=== PATIENT | male | born 1945 | race Two or more races ===

== ENCOUNTER 2019-04-04 17:21 | Emergency (ER) | payer MEDICARE, MEDICAID ==
[~2019-04-04] VITALS: Ht 182.9 cm; Wt 122.5 kg
--- NOTE | 2019-04-04 17:33 | NUR ---
CAME IN FOR L 5TH FINGER CELLULITIS. TO ER BED 3, HOOKED TO MONITOR, AWAITING MD LUCIANO
--- NOTE | 2019-04-04 18:00 | NUR ---
DR IQBAL AT BEDSIDE FOR RIGHT 5TH FINGER NEEDLE ASPIRATION
[2019-04-04] MEDS ORDERED: LIDOCAINE HCL/MPF 1% 30 ML VIAL IJ ONE (18:09)
--- NOTE | 2019-04-04 18:57 | NUR ---
Patient discharged to home in stable condition. Written and verbal after care instructions given. Patient verbalizes understanding of instruction.
[2019-04-04 19:10] VITALS: BP 127/70
== END 2019-04-04 19:10 | disposition home or self-care (01) ==
LOC: ER 17:51
DX: L02.511 Cutaneous abscess of right hand (principal); L03.011 Cellulitis of right finger; I10 Essential (primary) hypertension
CPT/HCPCS: 10160; 99284; J3490